=== PATIENT | female | born 1970 | race Caucasian/White ===

== ENCOUNTER 2021-01-17 05:28 | Day surgery (SDC) | payer OTHER ==
[2021-01-16 12:18] VITALS: BMI 21.2
[2021-01-17] MEDS ORDERED: LIDOCAINE HCL 1%, 10 MG/ML (20ML VIAL) ONE (11:31)
[2021-01-17] MEDS ORDERED: BUPIVACAINE HCL/PF 0.5% (5MG/ML) 10 ML VIAL ONE (11:32)
[2021-01-17] MEDS ORDERED: MIDAZOLAM HCL 2 MG/2 ML SINGLE DOSE VIAL ONE ×2 (11:35)
[2021-01-17] MEDS ORDERED: SUCCINYLCHOLINE CHLORIDE 200 MG/10 ML SYRINGE ONE (11:39)
[2021-01-17] MEDS ORDERED: ceFAZolin SODIUM 1 GM VIAL IVPB ONE (11:41)
[2021-01-17] MEDS ORDERED: LIDOCAINE HCL 1%, 10 MG/ML (20ML VIAL) INF ONE ×4 (11:57)
[2021-01-17 14:32] VITALS: BP 114/67; PULSE 70; TEMP 98
== END 2021-01-17 14:00 | disposition home or self-care (01) ==
LOC: JASU-SURG 05:28
PROVIDERS: ATTEND Surgery
PROC: 0JB60ZZ Excision of Chest Subcutaneous Tissue and Fascia, Open Approach (ICD-10-PCS; principal; 2021-01-17 10:30)
DX: L72.3 Sebaceous cyst (principal)

== ENCOUNTER 2024-07-22 07:34 | Day surgery (SDC) | payer OTHER ==
[2024-07-19 17:04] VITALS: BMI 17.3
[2024-07-22] MEDS ORDERED: LIDOCAINE HCL/PF 2% SDV 5ML VIAL ONE (08:17)
[2024-07-22] MEDS ORDERED: PROPOFOL 40 ML ONE (08:17)
[2024-07-22 09:25] VITALS: PULSE 74; RESP 16; TEMP 97.5
[2024-07-22 10:04] VITALS: BP 94/55
== END 2024-07-22 10:00 | disposition home or self-care (01) ==
LOC: FASU-ENDO 07:34
PROVIDERS: ATTEND Internal Medicine Gastroenterology
PROC: 0DB78ZX Excision of Stomach, Pylorus, Via Natural or Artificial Opening Endoscopic, Diagnostic (ICD-10-PCS; 2024-07-22)
PROC: 0DB68ZX Excision of Stomach, Via Natural or Artificial Opening Endoscopic, Diagnostic (ICD-10-PCS; 2024-07-22)
PROC: 0DB98ZX Excision of Duodenum, Via Natural or Artificial Opening Endoscopic, Diagnostic (ICD-10-PCS; principal; 2024-07-22 08:49)
DX: K29.50 Unspecified chronic gastritis without bleeding (principal); D51.0 Vitamin B12 deficiency anemia due to intrinsic factor deficiency
CPT/HCPCS: 88305-TC; 88342-TC